=== PATIENT | male | born 1950 | race Caucasian/White ===

== ENCOUNTER 2025-02-07 07:14 | Outpatient (CLI) | payer OTHER | END 2025-02-07 07:15 | disposition home or self-care (01) | LOC: CSHCT 07:14 | PROVIDERS: ATTEND Surgery | DX: I51.9 Heart disease, unspecified (principal); R93.1 Abnormal findings on diagnostic imaging of heart and coronary circulation; I77.810 Thoracic aortic ectasia | CPT/HCPCS: 75571 ==